=== PATIENT | male | born 1980 | race Caucasian/White ===

== ENCOUNTER 2017-03-26 16:46 | Emergency (ER) | payer OTHER ==
[2017-03-26] MEDS ORDERED: KETOROLAC TROMETHAMINE 60 MG/2 ML VIAL IM ONE (17:39)
[2017-03-26] MEDS ORDERED: DIAZEPAM 5 MG/ML SYRG ONE (17:39)
[2017-03-26] MEDS: KETOROLAC TROMETHAMINE 60 MG/2 ML VIAL IM ONE (17:42)
[2017-03-26] MEDS: DIAZEPAM 5 MG/ML SYRG IM ONE (17:43)
--- NOTE | 2017-03-26 17:54 | ERNOTE ---
Back Pain ER HPI Date of Service: 03/26/17 Presenting Symptoms: injury/pain to back Time Seen by Provider: 03/26/17 17:15 Source: patient, family, RN notes reviewed, past records, other - [facility] database Exam Limitations: no limitations Immunizations: IMMUNIZATION HX Immunizations Up to Date Yes History of Influenza Vaccine No Hx Pneumococcal Vaccination No Allergies/Adverse Reactions: Allergies morphine Adverse Reaction (Verified 03/26/17 16:59) Home Medications: HOME MEDICATIONS Aspirin/Acetaminophen/Caffeine [Excedrin Migraine Caplet] 1 each PO DAILY [Last Taken Unknown] Cyclobenzaprine HCl [Flexeril] 10 mg PO TID PRN #30 tab 03/26/17 [Last Taken Unknown] HYDROcodone/ACETAMINOPHEN [[place] 5-325] 1 tab PO Q6H PRN #16 tab 03/26/17 [Last Taken Unknown] Ibuprofen [Motrin] 600 mg PO Q6H PRN #40 tab 03/26/17 [Last Taken Unknown] Narrative: 36 y/o male to ED by private vehicle with his for back pain that began today. He has a history of back problems. He has seen Dr. Heredia in the past for his neck. He reports pain in his left lumbar region that radiates down the left leg. He has had pain in the same place in the past, but this is worse today. 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 He reports that the only thing that has given him any pain relief in the past is Dilaudid. Date (Duration): 03/26/17 Timing: Reports: constant Quality/Severity: Reports: severe, aching Location of pain: Reports: lower back, radiating to lf thigh/leg Activities at Onset: Reports: other - present on awakening today Recent Injury?: Reports: no Associated Symptoms: Denies: fever/chills, sweating, constipation/incontinence, nausea/vomiting, problems urinating, difficulty walking, lightheadedness, numbess/weakness in legs Prior Treament: Reports: similar symptoms before. Denies: recently seen Review of Systems - Review of Systems Constitutional: Absent: recent illness, fever, chills EYE: Present: no symptoms reported ENT: Present: no symptoms reported Respiratory: Absent: shortness of breath, cough Cardiology: Absent: chest pain, edema Gastrointestinal/Abdominal: Present: See HPI Genitourinary: Present: See HPI Musculoskeletal: Present: back pain, muscle pain. Absent: joint pain, joint swelling Skin: Absent: lesions, lumps, change in color Neurological: Absent: headache, dizziness/light-headedness, weakness, numbness, tingling Endocrine: Present: no symptoms reported Hematologic/Lymphatic: Present: no symptoms reported Psych: Present: no symptoms reported - Patient's Past Medical History Patient History - Medical: No pertinent hx Patient History - Cardiac/Respiratory: Other Patient History - Cancer: No Hx of Cancer Patient History - Surgical Procedures: No surgical history Patient History - Other: None - Social History Living Situations: home Psych History: No pertinent hx Smoking Status: Current every day smoker Cigarettes Packs Per Day: 1 Alcohol Use: none Drug Use: none - Immunizations Immunizations Up to Date: Yes Hx Pneumococcal Vaccination: No History of Influenza Vaccine: No Physical Exam - Physical Exam General Appearance: Present: wd/wn, alert, no apparent distress, other - pleasant, talkative Respiratory: Present: no respiratory distress, no accessory muscle use, expiration (prolonged), wheezing - mild Cardiovascular/Chest: Present: regular rate, rhythm, no murmur, normal peripheral pulses Back Exam: Present: no CVA tenderness, no vertebral tenderness, decreased range of motion, other - tenderness to palpation in left lumbar paraspinal muscle region. Absent: muscle spasm Extremity Exam: Present: normal inspection, normal range of motion, no edema Neurological Exam: Present: alert, oriented, normal mood/affect, no motor/ sensory deficits Skin Exam: Present: normal color, warm/dry ED Progress - Vital Signs Patient's Vital Signs:: I have reviewed the patient's vital signs. Vital Signs: Vital Signs 03/26/17 16:50 Temperature 36.4 C L Pulse Rate 71 Respiratory 16 Rate Blood Pressure 160/101 O2 Sat by Pulse 100 Oximetry - Progress/Reassessment Chief Complaint: Back Pain Progress:: Unchanged Plan - Plan Plan: Toradol and Valium given IM. Patient wants a referral to a specialist for his back. Recommended contacting Dr. Heredia since he has seen him approximately 2 years ago, but cautioned that he may need to establish with a PCP for a referral. Departure Clinical Impression: Low back pain radiating down leg - Departure Disposition: Home Follow Up Needed Condition: Stable Instructions: Back Pain, Adult Additional Instructions: Take ibuprofen routinely with food - take Flexeril and [place] as needed Contact Dr. Heredia regarding follow-up Establish with a primary care provider so you have someone to see you if needed Referrals: Jaciel Heredia MD [[facility]] - Prescriptions: Cyclobenzaprine HCl [Flexeril] 10 mg PO TID PRN #30 tab PRN Reason: MUSCLE SPASMS HYDROcodone/ACETAMINOPHEN [[place] 5-325] 1 tab PO Q6H PRN #16 tab PRN Reason: Pain Ibuprofen [Motrin] 600 mg PO Q6H PRN #40 tab PRN Reason: Pain
[2017-03-26 18:17] VITALS: BP 146/86
== END 2017-03-26 18:18 | disposition home or self-care (01) ==
LOC: ER 16:46
DX: M54.5 Low back pain (principal); M79.605 Pain in left leg; F17.210 Nicotine dependence, cigarettes, uncomplicated